=== PATIENT | male | born 1955 | race Caucasian/White ===

== ENCOUNTER 2017-02-26 04:17 | Observation (INO) | payer OTHER ==
--- NOTE | ~2017-02-26 | OP ---
Record Of Operation [facility] [address] [place]. [address] NAME: FELIPA LEVIN : 53 STATUS : ADM [facility] PAT#: [id number] AGE: 61 ADM/REG DATE : 02/26/17 MR#: [id number] REPORT SERV DATE: 02/26/17 DICTATED BY: MERARY CAHVEZ DATE: 02/26/17 REPORT STATUS : Draft TRANSCRIBED BY: MODL DATE: 02/26/17 DATE OF PROCEDURE: 02/26/2017 PREOPERATIVE DIAGNOSES: 1. Left ureteral stone. 2. Urinary tract infection. POSTOPERATIVE DIAGNOSES: 1. Left ureteral stone. 2. Urinary tract infection. PROCEDURE PERFORMED: 1. Left ureteroscopy with laser lithotripsy and basket stone fragment extraction. 2. Cystoscopy with left retrograde pyelogram, left ureter stent placement. ANESTHESIA: General. DRAINS: Left double-J ureter stent. SPECIMEN: Ureteral stone fragments for chemical analysis. INDICATION: Mr. Levin was admitted through the emergency room last night with UTI and left distal ureteral stone. TECHNIQUE: He received Rocephin at 06:00 a.m. He is brought to the operating room, general anesthesia was administered. Genitals and perineum were prepped and draped in the lithotomy position in sterile fashion. Rigid cystoscopy was performed. The urethra was normal. Prostate was nonobstructive. There was no stone, lesion, or tumor in the bladder. Clear efflux on the right UO, with sluggish efflux on the left. Left retrograde pyelogram was performed. There was left hydroureteronephrosis to the level of the distal ureter. The stone was faintly calcified at the left UVJ. A 0.038 straight Glidewire was passed up to the left kidney. I passed a rigid ureteroscope. The left ureter was cannulated. I identified the stone, it was too large to basket extract in without fragmentation. A 365 micron holmium laser fiber was passed through the working channel. Laser lithotripsy was performed. The stone was fragmented in pieces 2 mm in size or smaller. I basket extracted all fragments with a Zero Tip Nitinol basket. These were dropped in the bladder and evacuated at the end of the case. The ureteroscope was removed. Rigid cystoscopy was performed. Retrograde pyelogram was repeated. There was no extravasation. Hydronephrosis persisted. I placed a 26 cm 6-[place] contour left ureteral stent. The dangling string was externalized and secured to the penis. He will follow up in four days for stent removal in the office. He will not need a KUB prior to stent removal. Prescriptions for Lortab, Pyridium, Flomax, and Cipro were given. Record Of Operation [facility] [address] [place]. [address] NAME: FELIPA LEVIN : 53 STATUS : ADM [facility] PAT#: [id number] AGE: 61 ADM/REG DATE : 02/26/17 MR#: [id number] REPORT SERV DATE: 02/26/17 DICTATED BY: MERARY CHAVEZ DATE: 02/26/17 REPORT STATUS : Draft TRANSCRIBED BY: KIAN DATE: 02/26/17 [facility]/KIAN Merary Chavez M.D. / [phone] CC: Jet Lopez M.D.
--- NOTE | ~2017-02-26 | HP ---
History And Physical [facility] [id number] [place]. [address] NAME: FELIPA LEVIN : 53 STATUS : ADM [facility] PAT#: [id number] AGE: 61 ADM/REG DATE : 02/26/17 MR#: [id number] REPORT SERV DATE: 02/26/17 DICTATED BY: MERARY CHAVEZ DATE: 02/26/17 REPORT STATUS : Draft TRANSCRIBED BY: MODL DATE: 02/26/17 DATE OF ADMISSION: 02/26/2017 CHIEF COMPLAINT: Left flank pain. HISTORY OF PRESENT ILLNESS: Mr. Levin is a 61-year-old with no history of kidney stones, presents with acute onset of left flank pain. He does have diabetes and sleep apnea. His pain was fairly well controlled. In the emergency room, CT scan was obtained showing a 5 mm left distal stone. Creatinine and white count were normal. He was afebrile. He did have nitrite positive urine. As such, I was asked to admit him by the emergency room. PAST MEDICAL HISTORY: Diabetes, hypertension, sleep apnea, obesity. ALLERGIES: PENICILLIN AND SULFA. SOCIAL HISTORY: , nondrinker, nonsmoker. FAMILY HISTORY: Noncontributory. REVIEW OF SYSTEMS: Positive for dysuria for several days as well as left flank pain. No fever. He has had some nausea, but no vomiting. He has not seen a stone pass. HOME MEDICATIONS: Lipitor, Klonopin, Mobic, Lopressor, Benicar, Janumet, Ultram, tramadol. PHYSICAL EXAMINATION: VITAL SIGNS: Blood pressure 170/83, temperature 98.5, respirations 20, pulse 72. GENERAL: Pleasant, obese 61-year-old, in no acute distress. HEENT: Sclerae anicteric. LUNGS: Clear. HEART: Regular rhythm. CHEST: Clear anteriorly. ABDOMEN: Soft, nontender, protuberant. No palpable mass. No rebound or guarding. No right CVA tenderness. Mild to moderate left CVA tenderness. : Bladder is not distended. Phallus circumcised. Testes normally descended bilaterally. EXTREMITIES: No lower extremity edema. LABORATORY DATA: Voided urine is positive for nitrites, negative for leukocytes, white blood cell count is 9, creatinine 1.29. IMAGING: Left CT scan shows a 5 mm left UVJ stone. No other stones in the kidneys. IMPRESSION: 1. Left UVJ stone. 2. Urinary tract infection. History And Physical [address] [place]. [address] NAME: FELIPA LEVIN : 53 STATUS : ADM [facility] PAT#: [id number] AGE: 61 ADM/REG DATE : 02/26/17 MR#: [id number] REPORT SERV DATE: 02/26/17 DICTATED BY: MERARY CHAVEZ DATE: 02/26/17 REPORT STATUS : Draft TRANSCRIBED BY: KIAN DATE: 02/26/17 PLAN: Rocephin was given in the emergency room. We will proceed to the operating room for cystoscopy, left retrograde pyelogram, left ureteroscopy with stone extraction, and stent placement. He understands that there is grossly infected urine behind the stone that I will merely leave a stent. Risks of bleeding, infection, ureteral injury, and pain from the postoperative ureteral stent were discussed. [facility]/KIAN Merary Chavez M.D. / [id number] CC: Jet Lopez M.D.
[2017-02-26 04:03] LABS: BASOPHILS 0.2 %; BASOPHILS ABSOLUTE 0.02 10/3/uL (0.0-0.16); EOSINOPHILS 1.9 %; EOSINOPHILS ABSOLUTE 0.18 10/3/uL (0.0-0.53); HEMATOCRIT 44.3 % (40.0-51.0); HEMOGLOBIN 14.8 g/dL (13.6-17.8); IMMATURE GRANULOCYTES 0.1 %; IMMATURE GRANULOCYTES ABSOLUTE 0.01 10/3/uL (0.0-0.11); LYMPHOCYTES 32.8 %; LYMPHOCYTES ABSOLUTE 3.04 10/3/uL (0.67-4.30); MEAN CORPUS HGB CONC 33.4 g/dL (32.0-36.0); MEAN CORPUSCULAR HEMOGLOB 29.5 pg (26.0-34.0); MEAN CORPUSCULAR VOLUME 88.2 fL (80-100); MEAN PLATELET VOLUME 9.9 fL (9.2-13.0); MONOCYTES 7.3 %; MONOCYTES ABSOLUTE 0.68 10/3/uL (0.21-1.20); NEUTROPHILS 57.7 %; NEUTROPHILS ABSOLUTE 5.33 10/3/uL (2.02-8.40); PLATELET COUNT 181 10/3/uL (150-400); RBC DISTRIBUTION WIDTH 12.9 % (12.0-16.0); RED CELL COUNT 5.02 10/6/uL (4.7-6.1)
[2017-02-26 04:05] LABS: MANUAL DIFF NO %; WHITE BLOOD CELLS 9.3 10/3/uL (4.5-10.5)
[2017-02-26 04:12] LABS: ASCORBIC ACID (UR NOT ORDER) NEG (NEG); BILIRUBIN, URINE NEGATIVE (NEG); ER URINALYSIS TAT 0 Hrs 13 Mins; KETONE, URINE NEGATIVE (NEG); LEUKOCYTE ESTERASE(NOT OR NEG (NEG); NITRITE (URINE) POS (NEG); WBC (NOT ORDERED) (RFLEX) 1 (0-5)
[~2017-02-26 04:17] MED LIST: ACCUNEB INH; ACTOS15 PO; ALLEGRA180 PO; ASA5GR PO; BENICAR40 PO; C2; FISH OIL1200 MG PO; JANUMET1 TA1 PO; JANUVIA100 MG PO; KLONO5 PO; LIPITOR80 MG PO; LOP50 PO; MOBIC15 MG PO; MULTIPLE VIT PO; NORV25 PO; NORV5 PO; PCET PO; TOPXL25 PO; TOPXL50 PO; ULTRAM50 PO; ZETIA PO; ZOFRAN4 PO; ZYRTEC ALLGY10 MG PO
[2017-02-26 04:20] LABS: ALBUMIN 4.4 G/DL (3.5-5.0); ALKALINE PHOSPHATASE 60 U/L (45-117); CALCIUM, SERUM 9.3 MG/DL (8.5-10.4); CHLORIDE, SERUM 105 MMOL/L (96-112); CO2 (CARBON DIOXIDE) 26 MMOL/L (24-34); CREATININE 1.29 MG/DL (0.70-1.30); GFR AFRICAN AMERICAN 68 ML/MIN (>=60); GFR NON AFRICAN AMERICAN 59 ML/MIN (>=60); GLUCOSE, SERUM 110 MG/DL (60-99); POTASSIUM, SERUM 4.6 MMOL/L (3.5-5.3); SGPT(ALT) 34 U/L (5-65); SODIUM, SERUM 137 MMOL/L (135-148); TOTAL BILIRUBIN 0.8 MG/DL (0-1.2); TOTAL PROTEIN 7.7 G/DL (6.0-8.5)
[2017-02-26 04:22] LABS: A/G RATIO 1.3 (0.7-1.9); BUN (BLOOD UREA NITROGEN) 30 MG/DL (6-23); GLOBULIN 3.3 G/DL (2.5-4.1); SGOT(AST) 24 U/L (5-40)
[2017-02-26] MEDS ORDERED: LIPITOR80 MG PO (06:19)
[2017-02-26] MEDS ORDERED: JANUMET1 TA1 PO (06:19)
[2017-02-26] MEDS ORDERED: ULTRAM50 PO (06:20)
[2017-02-26] MEDS ORDERED: BENICAR40 PO (06:20)
[2017-02-26] MEDS ORDERED: LOP50 PO (06:21)
[2017-02-26] MEDS ORDERED: KLONO5 PO (06:22)
[2017-02-26] MEDS ORDERED: MOBIC15 MG PO (06:22)
[2017-02-26] MEDS ORDERED: PYR100B PO (14:51)
[2017-02-26] MEDS ORDERED: CIP5 PO (14:51)
[2017-02-26] MEDS ORDERED: FLOMAX4 (14:52)
[2017-03-03 03:03] LABS: STONE COMPOSITION TWO DNR (())
== END 2017-02-26 16:26 | disposition home or self-care (01) ==
LOC: ER 04:17 → 4SO 06:19
PROVIDERS: Hospitalist; Urology
PROC: BT1FZZZ Fluoroscopy of Left Kidney, Ureter and Bladder (ICD-10-PCS; 2017-02-26)
PROC: 0TF78ZZ Fragmentation in Left Ureter, Via Natural or Artificial Opening Endoscopic (ICD-10-PCS; principal; 2017-02-26 10:00)
DX: N20.1 Calculus of ureter (principal); N39.0 Urinary tract infection, site not specified; E11.9 Type 2 diabetes mellitus without complications; I10 Essential (primary) hypertension; G47.30 Sleep apnea, unspecified; E66.9 Obesity, unspecified; Z88.0 Allergy status to penicillin; Z88.2 Allergy status to sulfonamides; Z99.81 Dependence on supplemental oxygen
CPT/HCPCS: 74176; 74420; 80053; 81001; 82365; 82962; 83690; 85025; 96361; 96374; 96375; 96376; 99285; A9270-GY; C1758; C1769; C2617; G0378; J1170; J1885; J2250; J2405; J3010; Q9967